=== PATIENT | female | born 1985 | race Caucasian/White ===

== ENCOUNTER 2017-03-24 03:34 | Emergency (ER) | payer SELFPAY ==
--- NOTE | 2017-03-24 06:07 | ER ---
ADMIT: 03/24/2017 RM/LOC: ER [facility] MR#: [id number] [facility] [id number] LENCHO CAMPBELL [address] [place] [address] Emergency Room Report SEX: F AGE: 32 : 1985 DATE: 03/24/2017 The patient is a 32-year-old female, in police custody for resisting arrest. Exam remarkable for nontoxic, afebrile intoxicated female, with right knee abrasion. Last tetanus within 3 months. Wound was cleansed, dressed with bacitracin and dressing. Released in police custody. Manny Ross MD/ too JOB #: [id number] CC: Manny Ross MD, Attending Physician Alaina Jackson MD, Family Physician Alaina Jackson MD
== END 2017-03-24 03:45 ==
LOC: ER 03:34
DX: S80.211A Abrasion, right knee, initial encounter (principal); Y35.891A Legal intervention involving other specified means, law enforcement official injured, initial encounter